=== PATIENT | male | born 1935 | race African-American/Black ===

== ENCOUNTER 2017-03-01 07:03 | Inpatient (IN) | payer MEDICARE, OTHER ==
[~2017-03-01] VITALS: Ht 198.1 cm; Wt 72.0 kg
[2017-03-01 08:35] LABS: Hematocrit 37.1 % (41.0-53.0); Hemoglobin 12.4 g/dL (13.5-17.5); Mean Corpuscular Hemoglobin 27.5 pg (28.0-32.0); Mean Corpuscular Hgb Conc. 33.5 g/dL (32.0-36.0); Mean Corpuscular Volume 82.1 fL (80.0-100.0); Platelet Count (auto) 363 10^3/uL (140-450); Red Blood Cells 4.52 10^6/uL (4.5-5.90); Red Cell Distribution Width 15.5 % (11.8-14.3); White Blood Cell 24.5 10^3/uL (4.4-10.8)
[2017-03-01 08:37] LABS: Urine Amorphous Crystal FEW /hpf (None Seen); Urine Bacteria FEW /hpf (None Seen); Urine Blood 1+ /uL (Negative); Urine Mucus FEW (None Seen); Urine Specific Gravity 1.018 (1.001-1.035); Urine WBC 2 /hpf (0 - 3)
[2017-03-01 08:39] LABS: Basophils % (manual) 0 (0.0-2.0); Blast Cells 0; Eosinophils % (manual) 0 (0-7); Metamyelocytes % 0; Myelocytes % 0; Promyelocytes % 0; Reactive Lymphocytes 0
[2017-03-01 08:43] LABS: Alanine Aminotransferase 92 U/L (16-61); Albumin 2.3 g/dL (3.4-5.0); Alkaline Phosphatase 593 U/L (45-117); Anion Gap 11 (5-15); Aspartate Aminotransferase 97 U/L (15-37); Bilirubin, Total 3.8 mg/dL (0.2-1.0); Blood Urea Nitrogen 14 mg/dL (7-18); Calcium 9.2 mg/dL (8.5-10.1); Carbon Dioxide 25 mmol/L (21-32); Chloride 98 mmol/L (98-107); GFR African American 84 mL/min; GFR Non-African American 70 mL/min; Glucose 112 mg/dL (74-106); Lactic Acid w/Reflex 2.3 mmol/L (0.4-2.0); Magnesium 2.4 mg/dL (1.6-2.6); Potassium 3.4 mmol/L (3.5-5.1); Sodium 134 mmol/L (136-145); Total Protein 8.1 g/dL (6.4-8.2)
[2017-03-01] MEDS ORDERED: cefTRIAXone 1GM/10ml IVPUSH 10 ML IV ONE (09:30)
[2017-03-01] MEDS ORDERED: AZITHROMYCIN 500MG/ 250ML 250 ML IV ONE (09:30)
[2017-03-01] MEDS ORDERED: MORPHINE SULFATE 4 MG/ML SYR/VIAL IV PRN (10:00)
[2017-03-01] MEDS ORDERED: PROMETHAZINE HCL 25 MG/ML 1ML IV PRN (10:00)
[2017-03-01] MEDS ORDERED: MORPHINE SULF INJ 2 MG/ML SYRINGE 1ML IV PRN ×2 (10:00)
[2017-03-01] MEDS ORDERED: OSELTAMIVIR 75 MG CAP PO ONE (10:00)
[2017-03-01] MEDS ORDERED: NITROGLYCERIN 0.4 MG SL TAB SL PRN (10:00)
[2017-03-01] MEDS ORDERED: VANCOMYCIN PER PHARMACY 0 MG IV SCH (10:00)
[2017-03-01] MEDS ORDERED: ALBUTEROL SULF 2.5 MG/0.5ML(0.5%) NEB SOLN NEB PRN (10:00)
[2017-03-01] MEDS ORDERED: LORazepam 0.5 MG TAB PO PRN (10:00)
[2017-03-01] MEDS ORDERED: LACTULOSE 20Gm/30ML SOLN PO PRN (10:00)
[2017-03-01] MEDS ORDERED: AZITHROMYCIN 500MG/ 250ML 250 ML IV SCH (10:00)
[2017-03-01] MEDS ORDERED: TEMAZEPAM 15 MG CAP PO PRN (10:00)
[2017-03-01 10:03] LABS: Band Neutrophils % (manual) 1; Lymphocytes % (manual) 7 (10.0-50.0); Monocytes % (manual) 4 (0-12)
[2017-03-01] MEDS ORDERED: VANCOMYCIN 1GM/250ML 250 ML IV ONE (10:30)
[2017-03-01] MEDS ORDERED: PIPERACILLIN-TAZOB 3.375GM 50 ML IV ONE (10:30)
[2017-03-01 10:34] LABS: Amylase 384 U/L (25-115)
[2017-03-01] MEDS: PANTOPRAZOLE 40 MG TAB PO SCH (10:35)
[2017-03-01 10:45] LABS: Lipase 3129 U/L (73-393)
[2017-03-01] MEDS: ENOXAPARIN SOD 40 MG/0.4 ML SYRINGE SC SCH (11:03)
[2017-03-01] MEDS: SOD CHL 0.9%/ KCL 20MEQ 1,000 ML IV SCH ×2 (11:03→20:00)
[2017-03-01 11:46] VITALS: BP 133/74
[2017-03-01] MEDS ORDERED: ACETAMINOPHEN 325 MG TAB PO PRN (14:50)
[2017-03-01] MEDS ORDERED: ACETAMINOPHEN 325 MG TAB PO ONE (15:03)
[2017-03-01] MEDS: PIPERACILLIN-TAZOB 3.375GM 50 ML IV SCH (18:10)
[2017-03-01 20:34] VITALS: BP 101/58
[2017-03-01 22:00] VITALS: BP 101/58
[2017-03-01] MEDS: VANCOMYCIN 750 MG in D5W 5% 250 ML IV SCH (22:26)
[2017-03-01] MEDS: OSELTAMIVIR 75 MG CAP PO SCH (22:27)
[2017-03-02] MEDS: PIPERACILLIN-TAZOB 3.375GM 50 ML IV SCH ×4 (00:48→18:13)
[2017-03-02 05:00] VITALS: BP 130/76
[2017-03-02] MEDS: SOD CHL 0.9%/ KCL 20MEQ 1,000 ML IV SCH ×2 (05:47→16:00)
[2017-03-02 07:44] LABS: Hematocrit 32.7 % (41.0-53.0); Hemoglobin 11.1 g/dL (13.5-17.5); Mean Corpuscular Hemoglobin 27.4 pg (28.0-32.0); Mean Corpuscular Volume 80.5 fL (80.0-100.0); Platelet Count (auto) 263 10^3/uL (140-450); Red Blood Cells 4.06 10^6/uL (4.5-5.90); White Blood Cell 21.4 10^3/uL (4.4-10.8)
[2017-03-02 07:48] LABS: Basophils % (manual) 0 (0.0-2.0); Blast Cells 0; Eosinophils % (manual) 0 (0-7); Metamyelocytes % 0; Myelocytes % 0; Promyelocytes % 0; Reactive Lymphocytes 0
[2017-03-02 08:09] LABS: Albumin 1.7 g/dL (3.4-5.0); BUN/Creatinine Ratio 18.3; Calcium 8.7 mg/dL (8.5-10.1); Potassium 3.5 mmol/L (3.5-5.1); Total Protein 6.7 g/dL (6.4-8.2)
[2017-03-02 08:24] LABS: Band Neutrophils % (manual) 2; Lymphocytes % (manual) 6 (10.0-50.0); Monocytes % (manual) 2 (0-12)
[2017-03-02] MEDS: AZITHROMYCIN 500MG/ 250ML 250 ML IV SCH (08:36)
[2017-03-02 08:55] VITALS: BP 131/78
[2017-03-02] MEDS: OSELTAMIVIR 75 MG CAP PO SCH ×2 (10:00→21:30)
[2017-03-02] MEDS: VANCOMYCIN 750 MG in D5W 5% 250 ML IV SCH ×2 (10:56→22:28)
[2017-03-02] MEDS: PANTOPRAZOLE 40 MG TAB PO SCH (11:46)
[2017-03-02] MEDS: ENOXAPARIN SOD 40 MG/0.4 ML SYRINGE SC SCH (11:47)
[2017-03-02 12:18] VITALS: BP 134/80
[2017-03-02 16:32] VITALS: BP 141/69
[2017-03-02 22:00] VITALS: BP 146/82
[2017-03-03] MEDS: PIPERACILLIN-TAZOB 3.375GM 50 ML IV SCH ×4 (00:04→17:25)
[2017-03-03] MEDS: SOD CHL 0.9%/ KCL 20MEQ 1,000 ML IV SCH ×3 (01:31→22:12)
[2017-03-03 06:05] VITALS: BP 127/69
[2017-03-03 07:43] VITALS: BP 144/77
[2017-03-03] MEDS: AZITHROMYCIN 500MG/ 250ML 250 ML IV SCH (08:49)
[2017-03-03] MEDS: PANTOPRAZOLE 40 MG TAB PO SCH (10:22)
[2017-03-03] MEDS: ENOXAPARIN SOD 40 MG/0.4 ML SYRINGE SC SCH (10:22)
[2017-03-03] MEDS: VANCOMYCIN 750 MG in D5W 5% 250 ML IV SCH ×2 (10:22→22:13)
[2017-03-03 12:18] VITALS: BP 123/78
[2017-03-03 17:05] VITALS: BP 113/64
[2017-03-03 22:11] VITALS: BP 110/64
[2017-03-04] VITALS (7 sets, daily range): BP systolic 108–129; BP diastolic 61–72
[2017-03-04] MEDS: PIPERACILLIN-TAZOB 3.375GM 50 ML IV SCH ×4 (00:30→17:52)
[2017-03-04 05:37] LABS: Hematocrit 30.6 % (41.0-53.0); Hemoglobin 10.4 g/dL (13.5-17.5); Mean Corpuscular Hemoglobin 27.6 pg (28.0-32.0); Mean Corpuscular Hgb Conc. 34.2 g/dL (32.0-36.0); Mean Corpuscular Volume 80.8 fL (80.0-100.0); Platelet Count (auto) 211 10^3/uL (140-450); Red Blood Cells 3.78 10^6/uL (4.5-5.90); White Blood Cell 13.7 10^3/uL (4.4-10.8)
[2017-03-04 05:47] LABS: Calcium 8.7 mg/dL (8.5-10.1); Potassium 3.8 mmol/L (3.5-5.1)
[2017-03-04 05:49] LABS: BUN/Creatinine Ratio 23.7
[2017-03-04 05:52] LABS: Basophils % (manual) 0 (0.0-2.0); Blast Cells 0; Eosinophils % (manual) 0 (0-7); Metamyelocytes % 0; Myelocytes % 0; Promyelocytes % 0; Reactive Lymphocytes 0
[2017-03-04 07:42] LABS: Band Neutrophils % (manual) 1; Lymphocytes % (manual) 13 (10.0-50.0); Monocytes % (manual) 5 (0-12)
[2017-03-04] MEDS: SOD CHL 0.9%/ KCL 20MEQ 1,000 ML IV SCH ×2 (08:00→18:00)
[2017-03-04] MEDS: AZITHROMYCIN 500MG/ 250ML 250 ML IV SCH (08:13)
[2017-03-04] MEDS: ENOXAPARIN SOD 40 MG/0.4 ML SYRINGE SC SCH (09:51)
[2017-03-04] MEDS: PANTOPRAZOLE 40 MG TAB PO SCH (09:51)
[2017-03-04] MEDS: VANCOMYCIN 750 MG in D5W 5% 250 ML IV SCH ×2 (09:51→21:49)
[2017-03-05] MEDS: PIPERACILLIN-TAZOB 3.375GM 50 ML IV SCH ×2 (00:01→05:33)
[2017-03-05 04:39] VITALS: BP 111/62
[2017-03-05] MEDS: SOD CHL 0.9%/ KCL 20MEQ 1,000 ML IV SCH ×2 (06:54→14:00)
[2017-03-05] MEDS: AZITHROMYCIN 500MG/ 250ML 250 ML IV SCH (08:30)
[2017-03-05 09:00] VITALS: BP 133/68
[2017-03-05] MEDS: PANTOPRAZOLE 40 MG TAB PO SCH (09:45)
[2017-03-05] MEDS: ENOXAPARIN SOD 40 MG/0.4 ML SYRINGE SC SCH (09:45)
[2017-03-05] MEDS ORDERED: LEVOFLOXACIN 250 MG TAB PO ONE (10:30)
[2017-03-05 13:00] VITALS: BP 136/78
[2017-03-05 17:00] VITALS: BP 120/66
[2017-03-05 20:00] VITALS: BP 120/69
[2017-03-05 23:07] VITALS: BP 120/69
[2017-03-06] VITALS (7 sets, daily range): BP systolic 128–151; BP diastolic 71–81
[2017-03-06] MEDS: SOD CHL 0.9%/ KCL 20MEQ 1,000 ML IV SCH (05:54)
[2017-03-06 06:48] LABS: Basophils # (auto) 0 uL; Basophils % (auto) 0.2 % (0.0-2.0); Eosinophils # (auto) 0.1 uL; Eosinophils % (auto) 1.2 % (0.0-7.0); Hematocrit 31.6 % (41.0-53.0); Hemoglobin 10.7 g/dL (13.5-17.5); Lymphocytes # (auto) 1.7 uL; Lymphocytes % (auto) 16.7 % (10.0-50.0); Mean Corpuscular Hemoglobin 27.5 pg (28.0-32.0); Mean Corpuscular Volume 81.1 fL (80.0-100.0); Monocytes # (auto) 0.9 uL; Monocytes % (auto) 9.4 % (0.0-12.0); Neutrophils # (auto) 7.2 uL; Neutrophils % (auto) 72.5 % (37.0-80.0); Nucleated Red Blood Cells % 0.1 %; Platelet Count (auto) 279 10^3/uL (140-450); Red Cell Distribution Width 14.9 % (11.8-14.3); White Blood Cell 9.9 10^3/uL (4.4-10.8)
[2017-03-06 07:19] LABS: Albumin 1.8 g/dL (3.4-5.0); BUN/Creatinine Ratio 17.3; Bilirubin, Total 1.6 mg/dL (0.2-1.0); Calcium 8.7 mg/dL (8.5-10.1); Potassium 3.8 mmol/L (3.5-5.1); Total Protein 6.7 g/dL (6.4-8.2)
[2017-03-06] MEDS: PANTOPRAZOLE 40 MG TAB PO SCH (10:07)
[2017-03-06] MEDS: ENOXAPARIN SOD 40 MG/0.4 ML SYRINGE SC SCH (10:07)
[2017-03-06] MEDS: LEVOFLOXACIN 250 MG TAB PO SCH (10:07)
[2017-03-06] MEDS: PRO-STAT 64 30ML PO SCH (17:42)
[2017-03-06] MEDS: BOOST 8 ounces PO SCH (17:42)
[2017-03-07 05:00] VITALS: BP 132/74
[2017-03-07 06:37] LABS: Hematocrit 30.7 % (41.0-53.0); Hemoglobin 10.4 g/dL (13.5-17.5); Mean Corpuscular Hemoglobin 27.3 pg (28.0-32.0); Mean Corpuscular Volume 80.3 fL (80.0-100.0); Platelet Count (auto) 309 10^3/uL (140-450); Red Blood Cells 3.83 10^6/uL (4.5-5.90); Red Cell Distribution Width 14.6 % (11.8-14.3); White Blood Cell 10.2 10^3/uL (4.4-10.8)
[2017-03-07 06:42] LABS: Band Neutrophils % (manual) 0; Basophils % (manual) 0 (0.0-2.0); Blast Cells 0; Promyelocytes % 0; Reactive Lymphocytes 0
[2017-03-07 06:56] LABS: BUN/Creatinine Ratio 13.3; Bilirubin, Total 1.4 mg/dL (0.2-1.0); Calcium 8.6 mg/dL (8.5-10.1); Eosinophils % (manual) 3 (0-7); Lymphocytes % (manual) 27 (10.0-50.0); Metamyelocytes % 2; Monocytes % (manual) 10 (0-12); Myelocytes % 4; Total Protein 6.9 g/dL (6.4-8.2)
[2017-03-07] MEDS: PRO-STAT 64 30ML PO SCH (08:00)
[2017-03-07] MEDS: BOOST 8 ounces PO SCH (08:00)
[2017-03-07] MEDS ORDERED: LEVO250T45 PO (09:09)
[2017-03-07 09:10] VITALS: BP 152/76
[2017-03-07 09:40] VITALS: BP 152/76
[2017-03-07] MEDS: LEVOFLOXACIN 250 MG TAB PO SCH (10:55)
[2017-03-07] MEDS: ENOXAPARIN SOD 40 MG/0.4 ML SYRINGE SC SCH (10:56)
[2017-03-07] MEDS: PANTOPRAZOLE 40 MG TAB PO SCH (10:56)
[2017-03-07 12:04] VITALS: BP 152/72
[2017-03-07 12:47] VITALS: BP 152/72
== END 2017-03-07 15:20 | disposition home health service (06) | DRG 871 ==
LOC: ER 07:03 → EDBD 07:03 → TELE 07:04 → TELE-CENTR 19:28 → CENTRAL 03-07 00:29
PROVIDERS: ADMIT Internal Medicine; ATTEND Internal Medicine
DX: A41.59 Other Gram-negative sepsis (principal); E43 Unspecified severe protein-calorie malnutrition; J18.1 Lobar pneumonia, unspecified organism; D64.9 Anemia, unspecified; E87.1 Hypo-osmolality and hyponatremia; T85.590A Other mechanical complication of bile duct prosthesis, initial encounter; Z68.1 Body mass index [BMI] 19.9 or less, adult; E87.6 Hypokalemia; Y83.8 Other surgical procedures as the cause of abnormal reaction of the patient, or of later complication, without mention of misadventure at the time of the procedure; D18.1 Lymphangioma, any site; N40.0 Benign prostatic hyperplasia without lower urinary tract symptoms; Z66 Do not resuscitate; Z85.07 Personal history of malignant neoplasm of pancreas; Z86.718 Personal history of other venous thrombosis and embolism; Y92.89 Other specified places as the place of occurrence of the external cause; Z90.49 Acquired absence of other specified parts of digestive tract
CPT/HCPCS: 36415; 70450; 71045; 74176; 76705; 80048; 80053; 80061; 80202; 81001; 82150; 82378; 83605; 83690; 83735; 84154; 84484; 85007; 85025; 85027; 85652; 87040; 87070; 87077; 87086; 87186; 87205; 87400; 93005; 96365; 96366; 96372; 96375; 96376; 97116; 97163; 97530; J2543; J7060